=== PATIENT | female | born 1980 | race Caucasian/White ===

== ENCOUNTER → 2017-04-10 | Outpatient (CLI) | payer BC ==
[2015-05-09 09:56] VITALS: BP 112/74
[~2017-04-10] MED LIST: ALPR0.5T6 PO; CETI10TA22 PO; CYCL10TA2 PO; IRON1TAB35 PO; METH-39 PO; NORG1TAB6 PO; OXYC-323 PO; SPIR100T2 PO; SUMA100T4 PO
--- NOTE | 2017-04-10 16:16 | RAD ---
Pelvic ultrasound to include transabdominal and transvaginal imaging 04/10/2017 Clinical history: Pelvic pain. Technique: Using the distended urinary bladder as a sonographic window, a real-time ultrasound examination of the pelvis was performed. Additionally in an attempt to better evaluate the uterus and adnexa, a transvaginal ultrasound study was performed. Multiple images were obtained. Findings: The uterus is within normal limits in size and echogenicity. It measures 10.9 x 5.6 x 2.7 cm in longitudinal, transverse, and AP dimensions. The endometrial echo complex measures 6 mm in thickness which is within normal limits. No focal abnormality of the uterus is seen. Nabothian cysts are seen within the cervix which measure 1 to 1.3 cm in size. The right ovary is not visualized consistent with the patient's history of a right oophorectomy. The left ovary is mildly enlarged. It measures 4.7 x 2.1 x 1.9 cm in size. An oval-shaped complex structure is seen projecting from the left ovary which is heterogeneous and measures 3 cm in greatest diameter. Differential etiologies for this would include a hemorrhagic cyst or endometrioma. No free fluid is seen. Impression: 3 cm complex structure is seen projecting from the left ovary. Differential considerations would include a hemorrhagic cyst or endometrioma.
== END | disposition home or self-care (01) ==
LOC: US 15:01
PROVIDERS: ATTEND Obstetrics & Gynecology
DX: N94.9 Unspecified condition associated with female genital organs and menstrual cycle (principal)
CPT/HCPCS: 76830; 76856

== ENCOUNTER 2017-05-02 08:43 | Day surgery (SDC) | payer BC ==
[~2017-05-02] VITALS: Ht 152.4 cm; Wt 75.7 kg
[~2017-05-02 08:43] MED LIST changes: +BUPIVACAINE-EPI 0.25%-1:200000 MPF 30 ML VIAL. ONE; +CLINDAMYCIN 900MG PREMIX 50 ML IV ONE; +HYDROmorphone 2 MG/ML VIAL IV PRN; +IBUP-1027 PO; +IV RINGERS,LACTATED 1000ML 1,000 ML IV SCH; +LIDOCAINE 1% PF 2 ML VIAL. ID PRN; +MORPHINE SULFATE 2 MG/ML DISP.SYRIN. IV PRN; +ONDANSETRON PF 4 MG/2 ML VIAL. IV PRN; +PROCHLORPERAZINE 10 MG/2 ML VIAL. IV PRN; +RIZA10TA PO; +SURGICEL HEMOSTAT 4X8 EACH. ONE; +fentaNYL PF VIAL 100 MCG/2 ML VIAL IV PRN
[2017-05-02] MEDS ORDERED: CLINDAMYCIN 600MG PREMIX 0 ML IV ONE (08:56)
[2017-05-02] MEDS ORDERED: CLINDAMYCIN 900MG PREMIX 50 ML IV ONE (08:59)
[2017-05-02 10:01] LABS: NEG OBC UR NEG; POS OBC UR POS
[2017-05-02] MEDS ORDERED: fentaNYL PF VIAL 100 MCG/2 ML VIAL ONE ×2 (10:51→11:44)
[2017-05-02] MEDS ORDERED: PROPOFOL 20 ML IV ONE (10:51)
[2017-05-02] MEDS ORDERED: ONDANSETRON PF 4 MG/2 ML VIAL. ONE (10:51)
[2017-05-02] MEDS ORDERED: KETOROLAC 30 MG/ML INJ FOR OR. INJ ONE (10:51)
[2017-05-02] MEDS ORDERED: LIDOCAINE 2% PF Vial for OR 5 ML VIAL. ONE (10:51)
[2017-05-02] MEDS ORDERED: DEXAMETHASONE SOD PHOS 20 MG/5 ML VIAL. ONE (10:51)
[2017-05-02] MEDS ORDERED: NEOSTIGMINE 10 MG/10 ML VIAL. ONE (11:37)
[2017-05-02] MEDS ORDERED: GLYCOPYRROLATE 1 MG/5 ML VIAL. ONE (11:37)
--- NOTE | 2017-05-02 12:19 | PDOC ---
BRIEF OPERATIVE NOTE Pre-Op Diagnosis 1. BENITO Cyst 2. CPP Post-Op Diagnosis Same Procedure Performed [facility] LSO Surgeon Dr. Villarreal Anesthesia Type: General Blood Loss Less than 5 ml Specimens Obtained Left falopian tube and Left ovary Findings BENITO solid cyst 3 cm size and BENITO 4 cm cyst; nml uterus Complications none LASHELL VILLARREAL Jr, MD May 02, 2017 12:19
--- NOTE | 2017-05-02 12:19 | DISCH ---
DISCHARGE INSTRUCTIONS Condition on Discharge Condition on Discharge: Stable Activity After Discharge Activity Instructions for Disc: Activity as tolerated Lifting Instructions after Dis: No heavy lifting Driving Instructions after Dis: Do not drive today Diet after Discharge Diet after Discharge: Regular Contacting the DRNicole after DC Call your doctor for: Concerns you may have Follow-Up Follow up with: Dr. Villarreal in 1 week. LASHELL VILLARREAL Jr, MD May 02, 2017 12:19
[2017-05-02] MEDS ORDERED: OXYC-323 PO (12:49)
--- NOTE | 2017-05-02 12:50 | OP ---
DATE OF SURGERY: 05/02/2017 DATE OF SERVICE: 05/02/2017 PREOPERATIVE DIAGNOSES: 1. Left ovarian cyst. 2. Chronic pelvic pain. POSTOPERATIVE DIAGNOSES: 1. Left ovarian cyst. 2. Chronic pelvic pain. PROCEDURE: Laparoscopic LSO. SURGEON: Fernando Villarreal MD ANESTHESIA: GETA. ESTIMATED BLOOD LOSS: Less than 5 mL. COMPLICATIONS: None. FINDINGS: Left ovarian cyst about 3 cm size with solid cyst, a 4 cm left ovarian cyst that appears to be more of a corpus luteal cyst. SUMMARY: A 37-year-old female with chronic pelvic pain and left ovarian cyst, solid appearance, persisted despite observation. The patient was counseled on left ovarian cystectomy with possibility of LSO, risks, benefits and expectations, and voiced a clear understanding to proceed. DESCRIPTION OF PROCEDURE: The patient was taken to surgery suite and placed in dorsal lithotomy position. She was prepped with ChloraPrep for abdominal prep and Betadine for vaginal prep. After adequate anesthesia, bivalve speculum was placed vaginally. Anterior lip of the cervix grasped with a single tooth tenaculum. The Curefab uterine manipulator was then placed. The bivalve speculum was removed. Attention was placed on abdomen. Small transverse skin incision was made just below the umbilicus with the scalpel. The Veress needle was then placed through the infraumbilical incision site. The abdomen was allowed to insufflate up to 1-1/2 liters of CO2 gas. The Veress needle was then removed, 5 mm trocar was placed. The scope was positioned. The uterus appeared normal. The right fallopian tube and ovary was absent due to previous surgery. The left fallopian tube was visualized and was normal, left ovary demonstrated 2 cysts, one that was 3 cm solid cyst and the other was a 4 cm corpus luteal cysts. Two incisions were made in the left lower quadrant, which an 11 mm trocar and a 5 mm trocar was placed. The patient's was notified of the need to remove the left tube and ovary that was suspicious for neoplasm. With the aid of EnSeal device, the left infundibulopelvic ligament was coagulated and dissected. The left uteroovarian pedicle was coagulated and dissected. The left fallopian tube and ovary containing both cysts were placed in the Endobag and removed in their entirety. Suction irrigation was utilized to verify good hemostasis. A small amount of normal saline was left in the posterior cul-de-sac. The trocars were removed under direct visualization. The abdomen was allowed to deflate as much as possible along with mechanical manipulation. The 11 mm port was closed at the fascial layer using 2-0 Vicryl suture in a xomejr-zz-[id number] manner. The three skin incisions were reapproximated using 4-0 Vicryl suture in subcuticular manner and 0.25% Marcaine with epinephrine was injected at each incision site. The single tooth tenaculum and Hayden uterine manipulator were then removed. The patient tolerated the procedure well and was taken to recovery room in stable condition. Sponge and needle counts were correct x3. FERNANDO VILLARREAL MD DR: SENTHIL/ada JOB#: [id number] / [id number]
[2017-05-02] MEDS ORDERED: oxyCODONE/APAP 5/325 1 TAB TABLET PO PRN (14:00)
[2017-05-02 14:10] VITALS: BP 114/72
--- NOTE | 2017-05-03 14:50 | PATHOLOGY ---
PATHOLOGY REPORT * * * * * * * * FINAL DIAGNOSIS: Fallopian tube and ovary, left salpingo-oophorectomy: - Follicular cyst with hemorrhage and regressive changes, measuring 2.0 cm. - Small cystic follicles and focally hemorrhagic corpus luteum of ovary. - Cystic Walthard rests and small paratubal cysts of fallopian tube. COMMENT: There is no evidence of malignancy. (JPM:mgr; 05/03/2017) REPORT ELECTRONICALLY SIGNED BY: Deo Spear M.D. DATE/TIME: 05/03/2017 14:49 * * * * * * * * GROSS PATHOLOGY: The specimen is received in formalin, designated, "Georgiana White, left tube and ovary" and consists of an enlarged, focally cystic appearing ovary and attached fimbriated fallopian tube. The specimen weighs 14.2g. The ovary measures 5.5 x 3.2 x 2.0 cm. At one end of the ovary there is a large, fluctuant cyst, measuring 2.0 cm in diameter. The serosal surface is yellow darling and nodular. The cyst is dark purple reyna, smooth and glistening. Sectioning reveals pale yellow darling, smooth ovarian parenchyma with a few blanco yellow, focally hemorrhagic corpora lutea and cortical cysts filled with thin, clear fluid. The cyst is sectioned to reveal a thin walled cyst, filled with gelatinous hemorrhagic material. The fallopian tube measures 4.0 cm in length and 0.5 cm in diameter. Sectioning reveals a pinpoint, unremarkable cut surface. Finance Admin sections are submitted in cassettes A1 and A2. (JPM; 05/02/17) INITIAL CPT CODE(S): A; 37638 Professional services performed by [facility] at [address] [address] Technical services performed by [facility] at [address] [place] [address], [facility] [address], [place] [address]. SPECIMEN(S) RECEIVED: A.Left tube and ovary CLINICAL HISTORY: Left ovarian cyst PATIENT: GEORGIANA WHITE /AGE: 803/24/1980 (Age: 37) PATIENT #: [id number] ALT CASE #: SPECIMEN COLLECTION DATE: 05/02/2017 SPECIMEN RECEIVED DATE: 05/02/2017 [facility] - [id number] [address] - PHONE: [phone] * * * END OF REPORT * * *
== END 2017-05-02 14:16 | disposition home or self-care (01) ==
LOC: SURG 08:43
PROVIDERS: ATTEND Obstetrics & Gynecology
DX: N83.202 Unspecified ovarian cyst, left side (principal); N83.12 Corpus luteum cyst of left ovary; I10 Essential (primary) hypertension; E66.9 Obesity, unspecified; Z68.35 Body mass index [BMI] 35.0-35.9, adult; K21.9 Gastro-esophageal reflux disease without esophagitis; F41.9 Anxiety disorder, unspecified; F32.9 Major depressive disorder, single episode, unspecified; Z90.49 Acquired absence of other specified parts of digestive tract; Z86.69 Personal history of other diseases of the nervous system and sense organs; Z98.51 Tubal ligation status; Z87.440 Personal history of urinary (tract) infections; Z72.89 Other problems related to lifestyle; Z88.2 Allergy status to sulfonamides; Z88.1 Allergy status to other antibiotic agents; Z91.013 Allergy to seafood
CPT/HCPCS: 36415; 58661; 81025; 86850; 86900; 86901; 88305; A4215; C1782; J0780; J1100; J1885; J2405; J2704; J2710; J3010; J3490; J7030; J2001

== ENCOUNTER → 2021-02-14 | Outpatient (CLI) | payer BC ==
[~2021-02-14] MED LIST changes: -BUPIVACAINE-EPI 0.25%-1:200000 MPF 30 ML VIAL. ONE; -CETI10TA22 PO; +CETI10TA74 PO; -CLINDAMYCIN 900MG PREMIX 50 ML IV ONE; +CYCL10TA19 PO; -CYCL10TA2 PO; +DOCU-109 PO; -HYDROmorphone 2 MG/ML VIAL IV PRN; +IBUP-1060 PO; -IV RINGERS,LACTATED 1000ML 1,000 ML IV SCH; +LANS15CA73 PO; -LIDOCAINE 1% PF 2 ML VIAL. ID PRN; -MORPHINE SULFATE 2 MG/ML DISP.SYRIN. IV PRN; -ONDANSETRON PF 4 MG/2 ML VIAL. IV PRN; -OXYC-323 PO; +OXYC1TAB15 PO; -PROCHLORPERAZINE 10 MG/2 ML VIAL. IV PRN; -SPIR100T2 PO; +SPIR100T4 PO; -SURGICEL HEMOSTAT 4X8 EACH. ONE; +VENTOLIN HFA18 GM INH; +[UNRECOGNIZED DRUG - REMARK] TOP; -fentaNYL PF VIAL 100 MCG/2 ML VIAL IV PRN
== END ==
LOC: LAB 09:17
PROVIDERS: ATTEND Obstetrics & Gynecology
DX: Z01.812 Encounter for preprocedural laboratory examination (principal); Z20.822 Contact with and (suspected) exposure to COVID-19
CPT/HCPCS: U0003; U0005

== ENCOUNTER 2021-02-16 09:29 | Observation (INO) | payer BC ==
[~2021-02-16] VITALS: Ht 152.4 cm; Wt 76.8 kg
[2021-02-16] VITALS (10 sets, daily range): BP systolic 100–127; BP diastolic 58–83
[~2021-02-16 09:29] MED LIST changes: +AZTREONAM IV Push 1 GM VIAL. IVP ONE; +BUPIVACAINE-EPI 0.25%-1:200000 MPF 30 ML VIAL. ONE; +CLINDAMYCIN 900MG PREMIX 50 ML IV PRN; -CYCL10TA19 PO; +CYCL10TA2 PO; -DOCU-109 PO; +ESTROGENS, CONJ VAGINAL CREAM 30GM TUBE. ONE; +HYDROmorphone 2 MG/ML VIAL IVP PRN; -IBUP-1060 PO; +INDIGOTINDISULFONATE SODIUM 40 MG/5 ML AMPUL. ONE; +IV RINGERS,LACTATED 1000ML 1,000 ML IV SCH; -LANS15CA73 PO; +LANS15CA78 PO; +LIDOCAINE 1%/EPI 1:100,000 20 ML VIAL. ONE; +MORPHINE SULFATE 2 MG/ML INJ. IVP PRN; +PROCHLORPERAZINE 10 MG/2 ML VIAL. IVP PRN; +SURGICEL HEMOSTAT 4X8 EACH. ONE; +fentaNYL PF VIAL 100 MCG/2 ML VIAL IVP PRN
[2021-02-16] MEDS ORDERED: SCOPOLAMINE 1.5MG PATCH. TD ONE (10:00)
[2021-02-16 10:10] LABS: BASO % 0 % (0-3); EOS # 0.1 x10^3/uL (0.0-0.7); EOS % 1 % (0-3); HEMATOCRIT 37.4 % (36.0-47.0); HEMOGLOBIN 12.6 g/dL (12.0-15.5); LYMPH # 3.2 x10^3/uL (1.0-4.8); LYMPH % 34 % (24-48); MEAN CORPUSCULAR HEMOGLOBIN 27 pg (25-35); MEAN CORPUSCULAR HGB CONC 34 g/dL (31-37); MEAN CORPUSCULAR VOLUME 81 fL (79-100); MONO # 0.5 x10^3/uL (0.0-1.1); MONO % 5 % (0-9); NEUT # 5.5 x10^3/uL (1.8-7.7); NEUT % 60 % (31-73); PLATELET COUNT 227 x10^3/uL (140-400); RED BLOOD COUNT 4.63 x10^6/uL (3.50-5.40); RED CELL DISTRIBUTION WIDTH 14.9 % (11.5-14.5); WHITE BLOOD COUNT 9.3 x10^3/uL (4.0-11.0)
[2021-02-16] MEDS ORDERED: ROCURONIUM 50 MG/5 ML VIAL. ONE (10:21)
[2021-02-16] MEDS ORDERED: MIDAZOLAM HCL/PF 2 MG/2 ML VIAL. ONE (10:21)
[2021-02-16] MEDS ORDERED: fentaNYL PF VIAL 250 MCG/5 ML VIAL ONE (10:21)
[2021-02-16] MEDS ORDERED: PROPOFOL 10 MG/ML (20ML) VIAL. IV ONE (10:21)
[2021-02-16] MEDS ORDERED: ONDANSETRON PF 4 MG/2 ML VIAL. ONE (10:22)
[2021-02-16] MEDS ORDERED: LIDOCAINE 2% PF 5 ML VIAL. ONE (10:22)
[2021-02-16] MEDS ORDERED: SEVOFLURANE > 120 MINUTES. IH ONE (10:22)
[2021-02-16] MEDS ORDERED: DEXAMETHASONE SOD PHOS 4 MG/ML VIAL ONE (10:22)
[2021-02-16] MEDS ORDERED: GLYCOPYRROLATE 1 MG/5 ML VIAL. ONE (11:34)
[2021-02-16] MEDS ORDERED: NEOSTIGMINE METHYLSULFATE 5 MG/5 ML SYRINGE. ONE (11:34)
[2021-02-16] MEDS ORDERED: KETOROLAC 30 MG/ML VIAL. ONE (11:34)
--- NOTE | 2021-02-16 12:11 | PDOC ---
BRIEF OPERATIVE NOTE Date: Feb 16, 2021 Pre-Op Diagnosis 1. CPP 2. Dyspareunia Post-Op Diagnosis Same + Fibroid Procedure Performed [facility] Surgeon Dr. Villarreal Contact Manager Census Taker: Jakub Anesthesia Type: General Blood Loss 50 ml Specimens Obtained cervix, uterus and filshie clip Findings nml size uterus with fibroid, filshie clip Complications none Operative Note see dictation LASHELL VILLARREAL Jr, MD Feb 16, 2021 12:11
[2021-02-16] MEDS ORDERED: 0.9 % SODIUM CHLORIDE 10 ML DISP.SYRIN. IV PRN (12:15)
[2021-02-16] MEDS ORDERED: diphenhydrAMINE 50 MG/ML VIAL IV PRN (12:15)
[2021-02-16] MEDS ORDERED: PROCHLORPERAZINE 10 MG/2 ML VIAL. IV PRN (12:15)
[2021-02-16] MEDS ORDERED: ONDANSETRON PF 4 MG/2 ML VIAL. IV PRN (12:15)
[2021-02-16] MEDS ORDERED: diphenhydrAMINE HCL 25 MG CAPSULE PO PRN (12:15)
[2021-02-16] MEDS ORDERED: CALCIUM CARBONATE 500 MG TAB.CHEW PO PRN (12:15)
[2021-02-16] MEDS ORDERED: OPIUM/BELLADONNA 30/16.2MG SUPP.RECT. PR PRN (12:15)
[2021-02-16] MEDS ORDERED: DEXTROSE 50% 25 GM / 50ML DISP.SYRIN. IV PRN (12:15)
[2021-02-16] MEDS ORDERED: ZOLPIDEM 5 MG TABLET. PO PRN (12:15)
[2021-02-16] MEDS ORDERED: SIMETHICONE 80 MG TAB.CHEW PO PRN (12:15)
--- NOTE | 2021-02-16 12:23 | OP ---
DATE OF SURGERY: 02/16/2021 PREOPERATIVE DIAGNOSES: 1. Chronic pelvic pain. 2. Dyspareunia. POSTOPERATIVE DIAGNOSES: 1. Chronic pelvic pain. 2. Dyspareunia. 3. Fibroid. PROCEDURE: LAVH. SURGEON: Dr. Villarreal. CASH CROP FARMER: Jakub. ANESTHESIA: General. ESTIMATED BLOOD LOSS: 50 mL SPECIMENS: None. FINDINGS: Normal sized uterus with fibroid. Filshie clip. SUMMARY: A 40-year-old female with chronic pelvic pain, dyspareunia, requiring hysterectomy. The patient was counseled on the risks, benefits and expectations and voiced clear understanding to proceed. DESCRIPTION OF PROCEDURE: The patient was taken to surgery suite and placed in dorsal lithotomy position. She was prepped with Betadine solution for vaginal prep and ChloraPrep for abdominal prep and draped in sterile fashion. After adequate anesthesia, bivalve speculum was placed vaginally. Anterior lip of the cervix grasped with single tooth tenaculum. Valtchev uterine manipulator was then placed. The bivalve speculum was removed. Attention was now placed on abdomen. A small transverse skin incision was made just below the umbilicus with a scalpel. The Veress needle was then placed through the infraumbilical incision site. The abdomen was allowed to insufflate up to 1-1/2 liters of CO2 gas. The Veress needle was then removed. A 5 mm trocar was placed. Scope was positioned. Uterus appeared normal size. There was a fibroid on the uterus. There was no evidence of endometriosis. Two additional incisions were made in the left lower quadrant in which 5 mm trocars were placed with aid of graspers and EnSeal device. The right round ligament was coagulated and dissected. The right broad ligament was coagulated and dissected down to and including the right uterine artery. Same process took place with left adnexa. Bladder flap was created with the EnSeal device along with hydrodissection. The pedicles all remained hemostatic. We then proceeded vaginally. Weighted speculum and curved Rudolph placed vaginally. The single tooth tenaculum, Valtchev uterine manipulator was then removed. Samuel clamp was placed on the anterior and posterior lip of the cervix. A 1% lidocaine with epinephrine was injected in a circumferential manner. Bovie cautery was utilized to circumscribe the cervix. The vaginal mucosa was dissected away from the lower uterine mucosa using a moist Ray-Payal. Parametrial tissue was clamped bilaterally, cut and suture ligated with 2-0 Vicryl suture. Posterior cul-de-sac was entered sharply with curved Higuera scissors. Anterior cul-de-sac was entered with blunt dissection. Uterosacral ligaments were clamped bilaterally, cut, and suture ligated. The cervix and uterus was then removed in their entirety. A modified Duvall's culdoplasty was performed incorporating the uterosacral ligaments. The remainder of the vaginal cuff was reapproximated using 2-0 Vicryl suture in lmyngf-jn-dcayp manner. Premarin soaked vaginal packing was placed. We then proceeded abdominally. The abdomen was once again insufflated with CO2 gas up to 1-1/2 liters. The scope was positioned. The vaginal cuff was visualized and was hemostatic. There was a small amount of normal saline was left in posterior cul-de-sac. The trocar was then removed under direct visualization. The abdomen was allowed to deflate as much as possible along with mechanical manipulation. The three skin incisions were reapproximated using 4-0 Vicryl suture in subcuticular manner. A 0.25% Marcaine with epinephrine was injected at each incision site. The patient tolerated the procedure well and was taken to recovery room in stable condition. Sponge and needle count correct x 3. SENTHIL/CIELO DR: Sherice TID: [id number]
[2021-02-16] MEDS ORDERED: MORPHINE SULFATE 2 MG/ML INJ. ONE ×2 (12:36→13:11)
[2021-02-16] MEDS ORDERED: PROCHLORPERAZINE 10 MG/2 ML VIAL. ONE (12:36)
[2021-02-16] MEDS: MORPHINE SULFATE 2 MG/ML INJ. IVP PRN ×3 (12:38→13:13)
[2021-02-16] MEDS ORDERED: fentaNYL PF VIAL 100 MCG/2 ML VIAL ONE (12:51)
[2021-02-16] MEDS: fentaNYL PF VIAL 100 MCG/2 ML VIAL IVP PRN ×2 (12:55→13:02)
[2021-02-16] MEDS: GABAPENTIN 300 MG CAPSULE. PO SCH ×2 (15:32→21:29)
[2021-02-16] MEDS: oxyCODONE/APAP 5/325 1 TAB TABLET PO PRN ×2 (15:33→20:05)
[2021-02-16] MEDS: KETOROLAC 30 MG/ML VIAL. IV PRN (17:44)
--- NOTE | 2021-02-16 17:55 | NUR ---
Dr Villarreal was paged due to patients pressure/increased pain in her vagina. She states "it just feels so full down there and like something is stabbing me". Dr Villarreal stated the patients packing could be removed at this time but the Fontaine needed to remain in place till the morning. Toradol IV was given prior to the procedure. Packing was removed around 1750. A moderate amount of blood was present on the packing and a golf ball sized clot was pulled out with the packing when it was removed. No active bleeding noted or present once packing was removed. Patient stated immediate relief of stabbing sensation. Will continue to monitor. Education completed with the patient/ about monitoring for bleeding.
[2021-02-17] MEDS: KETOROLAC 30 MG/ML VIAL. IV PRN ×2 (01:57→08:27)
--- NOTE | 2021-02-17 04:40 | NUR ---
Fontaine DC'd without incident. 1800cc urine output. Percocet 2 given for pain.
[2021-02-17] MEDS: oxyCODONE/APAP 5/325 1 TAB TABLET PO PRN ×3 (04:51→14:22)
[2021-02-17] MEDS: GABAPENTIN 300 MG CAPSULE. PO SCH ×2 (06:00→14:22)
[2021-02-17 06:03] LABS: BASO % 0 % (0-3); EOS % 0 % (0-3); HEMATOCRIT 33.5 % (36.0-47.0); HEMOGLOBIN 11.3 g/dL (12.0-15.5); LYMPH # 1.5 x10^3/uL (1.0-4.8); LYMPH % 12 % (24-48); MEAN CORPUSCULAR HEMOGLOBIN 28 pg (25-35); MEAN CORPUSCULAR HGB CONC 34 g/dL (31-37); MEAN CORPUSCULAR VOLUME 82 fL (79-100); MONO # 0.6 x10^3/uL (0.0-1.1); MONO % 5 % (0-9); NEUT # 9.8 x10^3/uL (1.8-7.7); NEUT % 83 % (31-73); PLATELET COUNT 243 x10^3/uL (140-400); RED BLOOD COUNT 4.08 x10^6/uL (3.50-5.40); RED CELL DISTRIBUTION WIDTH 14.4 % (11.5-14.5); WHITE BLOOD COUNT 11.8 x10^3/uL (4.0-11.0)
[2021-02-17 06:36] VITALS: BP 88/58
--- NOTE | 2021-02-17 10:00 | NUR ---
resting quietly in bed. denies bleeding. remains at bedside.
[2021-02-17 11:15] VITALS: BP 98/65
--- NOTE | 2021-02-17 12:06 | PDOC ---
SURGICAL PROGRESS NOTE DATE: 02/17/21 TIME: 12:05 Subjective Pt. feeling well. Pain controlled. She is ambulating and voiding without difficulty. Vital Signs Vital Signs Date Time Temp Pulse Resp B/P (MAP) Pulse Ox O2 Delivery O2 Flow Rate FiO2 02/17/21 11:15 98.3 106 18 98/65 (76) 98 Room Air 98.3 02/16/21 13:13 2.0 I&O Intake and Output 02/17/21 07:00 Intake Total 1430 ml Output Total 2610 ml Balance -1180 ml Intake Oral 480 ml IV Total 550 ml Blood Product IV Normal Saline Flush 400 ml Output Urine Total 2560 ml Estimated Blood Loss 50 ml General: Alert, Oriented X3, Cooperative HEENT: Atraumatic Lungs: Clear to auscultation Heart: Regular rate Abdomen: Normal bowel sounds, Soft, No masses Psych/Mental Status: Mental status NL Labs Laboratory Tests Test 02/16/21 08:56 02/16/21 09:50 02/17/21 03:20 Bedside Urine HCG, Qualitative Hcg negative (Negative) White Blood Count 9.3 x10^3/uL (4.0-11.0) 11.8 x10^3/uL (4.0-11.0) Red Blood Count 4.63 x10^6/uL (3.50-5.40) 4.08 x10^6/uL (3.50-5.40) Hemoglobin 12.6 g/dL (12.0-15.5) 11.3 g/dL (12.0-15.5) Hematocrit 37.4 % (36.0-47.0) 33.5 % (36.0-47.0) Mean Corpuscular Volume 81 fL (79-100) 82 fL (79-100) Mean Corpuscular Hemoglobin 27 pg (25-35) 28 pg (25-35) Mean Corpuscular Hemoglobin Concent 34 g/dL (31-37) 34 g/dL (31-37) Red Cell Distribution Width 14.9 % (11.5-14.5) 14.4 % (11.5-14.5) Platelet Count 227 x10^3/uL (140-400) 243 x10^3/uL (140-400) Neutrophils (%) (Auto) 60 % (31-73) 83 % (31-73) Lymphocytes (%) (Auto) 34 % (24-48) 12 % (24-48) Monocytes (%) (Auto) 5 % (0-9) 5 % (0-9) Eosinophils (%) (Auto) 1 % (0-3) 0 % (0-3) Basophils (%) (Auto) 0 % (0-3) 0 % (0-3) Neutrophils # (Auto) 5.5 x10^3/uL (1.8-7.7) 9.8 x10^3/uL (1.8-7.7) Lymphocytes # (Auto) 3.2 x10^3/uL (1.0-4.8) 1.5 x10^3/uL (1.0-4.8) Monocytes # (Auto) 0.5 x10^3/uL (0.0-1.1) 0.6 x10^3/uL (0.0-1.1) Eosinophils # (Auto) 0.1 x10^3/uL (0.0-0.7) 0.0 x10^3/uL (0.0-0.7) Basophils # (Auto) 0.0 x10^3/uL (0.0-0.2) 0.0 x10^3/uL (0.0-0.2) Laboratory Tests Test 02/17/21 03:20 White Blood Count 11.8 x10^3/uL (4.0-11.0) Red Blood Count 4.08 x10^6/uL (3.50-5.40) Hemoglobin 11.3 g/dL (12.0-15.5) Hematocrit 33.5 % (36.0-47.0) Mean Corpuscular Volume 82 fL (79-100) Mean Corpuscular Hemoglobin 28 pg (25-35) Mean Corpuscular Hemoglobin Concent 34 g/dL (31-37) Red Cell Distribution Width 14.4 % (11.5-14.5) Platelet Count 243 x10^3/uL (140-400) Neutrophils (%) (Auto) 83 % (31-73) Lymphocytes (%) (Auto) 12 % (24-48) Monocytes (%) (Auto) 5 % (0-9) Eosinophils (%) (Auto) 0 % (0-3) Basophils (%) (Auto) 0 % (0-3) Neutrophils # (Auto) 9.8 x10^3/uL (1.8-7.7) Lymphocytes # (Auto) 1.5 x10^3/uL (1.0-4.8) Monocytes # (Auto) 0.6 x10^3/uL (0.0-1.1) Eosinophils # (Auto) 0.0 x10^3/uL (0.0-0.7) Basophils # (Auto) 0.0 x10^3/uL (0.0-0.2) Assessment/Plan A: POD#1 s/p LAVH P: D/c home. Justicifation of Admission Dx: Justifications for Admission: Justification of Admission Dx: Yes LASHELL CLEVELAND Jr, MD Feb 17, 2021 12:06
[2021-02-17] MEDS ORDERED: OXYC1TAB15 PO (12:08)
[2021-02-17] MEDS ORDERED: DOCU-109 PO (12:08)
[2021-02-17] MEDS ORDERED: IBUP-1060 PO (12:08)
--- NOTE | 2021-02-17 12:10 | DISCH ---
DISCHARGE INSTRUCTIONS Condition on Discharge Condition on Discharge: Stable Activity After Discharge Activity Instructions for Disc: Activity as tolerated Lifting Instructions after Dis: No heavy lifting Driving Instructions after Dis: No driving for 2 weeks Diet after Discharge Diet after Discharge: Regular Contacting the DRNicole after DC Call your doctor for: Concerns you may have Follow-Up Follow up with: Dr. Villarreal in 2 wks LASHELL VILLARREAL Jr, MD Feb 17, 2021 12:09
--- NOTE | 2021-02-17 14:53 | NUR ---
reviewed written discharge instructions with German. reviewed restrictions to activities of daily living such as bathing diet and lifting limitations. also, discussed incisional care and the need for wearing a panty liner.to call the doctor for temp and increase in bleeding or large clots. both verbalized understanding of these instructions. was given Percocet before departure. saline lock removed
--- NOTE | 2021-02-22 18:23 | PATHOLOGY ---
[facility] Accession Number: [id number] . 01 Material submitted: . cervix - CERVIX, UTERUS, AND FILSHIE CLIP. Modifiers: UTERUS . 01 Clinical history: . PELVIC PAIN LAVH CHRONIC PELVIC PAIN ENDO . 02 Diagnosis: Uterus, laparoscopic assisted vaginal hysterectomy: - Mild chronic cervicitis, focal. - Nabothian cyst, cervix. - Inactive/weakly proliferative endometrium. - Adenomyosis, uterine corpus, subbasal, focal. - Subserosal leiomyoma, small. . Filshie clip (Gross only). (JPM:howard; 02/20/2021) [facility] 02/22/2021 1359 Local . 02 Comment: There is no atypia or evidence of malignancy. (JPM:howard; 02/20/2021) . 02 Electronically signed: . Deo Spear MD, Pathologist NPI- [id number] . 01 Gross description: . Fixative: Formalin Labeled: Cervix, uterus and filshie clip Specimen received: Previously opened uterus with attached cervix without bilateral adnexa Uterus weight: 42 g Uterus: 8.0 x 5.0 x 3.0 cm Serosa: Vega and smooth with a 0.8 x 0.5 x 0.4 cm vega, rubbery and whirled nodule underlying the serosa Ectocervix: White and focally hemorrhagic, smooth and glistening. Lower uterine segment inked as follows: Anterior: Blue; posterior: Black. Cervical os: Slit like, measuring 0.8 cm Endocervical canal: 2.5 cm Endometrial cavity: 2.7 x 1.4 cm Endometrial thickness: 0.1 cm Myometrial thickness: 1.3 cm Lesions/abnormalities: No lesions are grossly identified within the uterus. Sectioning through the cervix reveals multiple smooth-walled, clear mucin filled cysts ranging from 0.5-1.3 cm in greatest dimension. . Also identified within the specimen container is a silver-colored, metal irregular shaped device measuring 1.4 x 0.5 x 0.4 cm. A gross photograph is taken. . Perioperative Assistant sections are submitted as follows: A1 12:00 cervix with portion of cyst A2 6:00 cervix A3 anterior endomyometrium A4 posterior endomyometrium with subserosal nodule (MRF; 02/17/2021) [facility] 02/20/2021 1238 Local . 02 Pathologist provided ICD-10: N72, N88.8, N85.9, N80.0, D25.2 . 02 CPT . 698991, [id number] Specimen Comment: A courtesy copy of this report has been sent to [phone], [phone] Specimen Comment: [id number] Specimen Comment: Report sent to / DR TORRES Performed at: 01 [facility] [address] [address], [place] [id number] MD Donal Doty MD Phone: [phone] Performed at: 02 [facility] [address] [place], [place] [id number] MD Deo Spear MD Phone: [phone]
== END 2021-02-17 14:50 | disposition home or self-care (01) ==
LOC: SURG 09:29 → 4 SOUTHEST 12:11
PROVIDERS: ADMIT Obstetrics & Gynecology; ATTEND Obstetrics & Gynecology
DX: N94.10 Unspecified dyspareunia (principal); R10.2 Pelvic and perineal pain; G89.29 Other chronic pain; D25.9 Leiomyoma of uterus, unspecified
CPT/HCPCS: 36415; 58550; 81025; 85025; 86850; 86900; 86901; 96374; 96376; A4314; A4930; A6219; G0378; G0379; J0780; J1100; J1885; J2250; J2270; J2405; J2704; J2710; J3010; J3490; A4223; A4452; A4657